=== PATIENT | female | born 1990 | race Caucasian/White ===

== ENCOUNTER 2023-04-25 10:52 | Outpatient (CLI) | payer BC, SELFPAY ==
[2023-04-25] VITALS (9 sets, daily range): BP systolic 114–125; BP diastolic 74–80; PULSE 77–85; RESP 18; TEMP 36.8; BMI 40.5
--- NOTE | ~2023-04-25 | US_ITS ---
EXAMINATION: US OB BPP wo non-stress DATE: 04/25/2023 14:18 INDICATION: Hypertension in . Third trimester. TECHNIQUE: Real-time pelvic ultrasound was performed. COMPARISON: Ultrasound 04/18/2023 FINDINGS: There is a single living fetus in vertex presentation. The placenta is left posterior. heart r ate is 131 beats per minute (bpm). Biophysical profile performed by the technologist: breathing (30 sec sustained breathing in 30 minutes): 2 out of 2 movement (3 gross body movements in 30 minutes): 2 out of 2 tone (one episode of mgkfhcz-zvftnkdfg-nbpibsg limb movement): 2 out of 2 Amniotic fluid pocket (2 cm): 2 out of 2 Total score: 8 out of 8 IMPRESSION: 1. Single living fetus in vertex presentation. 2. Biophysical profile 8 out of 8. Reviewed, dictated and finalized at location L.
--- NOTE | 2023-04-25 11:43 | PC.NURSE ---
Paged Dr. Mills for orders.
--- NOTE | 2023-04-25 11:49 | PC.NURSE ---
Dr. Pink came through unit and informed of this pt's arrival by ambulance after having a headache for 3 days, an emesis at work and just not feeling right. Pt walked across the street to the [employer] and when they checked her BP it was 170's / 120's. Initial BP here is 121/80. Denies visual disturbance, epigastric/RUQ pain. DTR's 2+ and no clonus. Pt on Labetalol BID for hypertension in . Reviewed FHR monitor tracing with MD and discussed wandering / indeterminate baseline at this time. Orders received for labs and to continue monitoring FHT's.
[2023-04-25 12:12] LABS: Basophils Percent Auto 0.1 % (0.2-1.2); Eosinophils Absolute Auto 0.1 K/mm3 (0-0.3); Eosinophils Percent Auto 0.8 % (0-4.4); Hematocrit 32.1 % (37.0-47.0); Hemoglobin 10.5 g/dL (12.0-15.0); Immature Granulocyte Absolute 0.04 K/mm3 (0.00-0.031); Immature Granulocyte Percent A 0.4 % (0-0.5); Lymphocytes Absolute Auto 1.43 K/mm3 (0.9-3.2); Lymphocytes Percent Auto 14.3 % (18.3-44.2); Mean Corpuscular HGB Conc 32.7 g/dl (32-36); Mean Corpuscular Hemoglobin 29.7 pg (26-34); Mean Corpuscular Volume 90.9 fl (80-100); Mean Platelet Volume 9.2 fl (7.4-10.4); Monocytes Absolute Auto 0.5 K/mm3 (0.1-0.6); Monocytes Percent Auto 5.3 % (2.6-8.5); Neutrophils Absolute Auto 7.9 K/mm3 (1.3-6.7); Neutrophils Percent Auto 79.1 % (45.5-73.1); Platelet Count Result 258 k/mm3 (150-375); Red Blood Count 3.53 M/mm3 (4.2-5.4); Red Cell Distribution Width 12.7 % (11.5-14.5)
[2023-04-25 12:16] LABS: Appearance Urine Cloudy (Clear); Bilirubin Urine Negative (Negative); Blood Urine Negative (Negative); Color Urine Yellow (Yellow); Glucose Urine UA Negative (Negative); Ketones Urine Negative (Negative); Leukocyte Esterase Ur Negative LEU/UL (Negative); Nitrate Urine Negative (Negative); Protein Urine Negative (Negative); Specific Grav Ur 1.015 (1.001-1.035); Urobilinogen Urine 0.2 mg/dL (<2.0)
[2023-04-25 12:20] LABS: Add Urine Microscopic? YES
[2023-04-25 12:22] LABS: Alanine Aminotransferase 18 U/L (6-35); Albumin Level 3.4 g/dL (3.5-5.1); Alkaline Phosphatase 98 U/L (38-126); Anion Gap 4 mmol/L (8-16); Aspartate Amino Transferase 19 U/L (14-36); Bilirubin,Total 0.2 mg/dL (0.2-1.3); Blood Urea Nitrogen 6 mg/dL (7-17); Carbon Dioxide 21 mmol/L (22-30); Chloride 107 mmol/L (98-107); Estimated Glomerular Filt Rate > 60; Glucose 82 mg/dL (65-110); Potassium 4.3 mmol/L (3.4-5.0); Sodium 132 mmol/L (137-145); Uric Acid 3.9 mg/dL (2.5-7.5)
[2023-04-25 12:33] LABS: RBC Urine 0-2 /hpf (0-2); Squamous Epithelial Cell Urine Few /hpf (Few); Transitional Epi Cells Urine Few /hpf (None Seen); WBC Urine 0-3 /hpf (0-3)
[2023-04-25 12:35] LABS: Bacteria Urine Trace /hpf
[2023-04-25 12:55] LABS: Creatinine Urine 57.9 mg/dL; Total Protein Urine Random 10 mg/dL; Ur Ttl Prot Creatinine Ratio 0.17 mg/mg (0-0.20)
--- NOTE | 2023-04-25 13:09 | PC.NURSE ---
Dr. Pink informed of lab results, updated on BP's, and discussed FHT's have settled down confirming FHR baseline of 120-130 with accels and reactive. Discussed pt still rates her headache a 2 and she had Tylenol 1000 mg at home 5 hrs ago. MD will call in RX for pt for Fioricet. OK to give pt a dose now and discharge to home (Pt's family is here to drive her home.)
[2023-04-25] MEDS: ACETAMINOPHEN/BUTALBITAL/CAFFEINE 325-50-40 MG TABLET (FIORICET) 1 TAB PO (13:24)
--- NOTE | 2023-04-25 13:30 | PC.NURSE ---
While going over discharge instructions and follow up with pt, she stated she is scheduled to come tomorrow for a scheduled NST and BPP. Checked with Dr. Pink- OK to do pt's BPP today and cancel tomorrow's .
--- NOTE | 2023-04-25 13:37 | P.PNOB_ITS ---
OB - Triage/Final Diagnosis Visit Information Reason for evaluation: other (elevated blood pressure and headache) Comments/Additional reasons for admission: I have assessed the risk for this patient, Milla Greene, and determined that she would benefit from observation care. Evaluation Laboratory results: Laboratory Tests 04/25/23 11:55 WBC 10.0 RBC 3.53 L Hgb 10.5 L Hct 32.1 L MCV 90.9 MCH 29.7 MCHC 32.7 RDW 12.7 Plt Count 258 MPV 9.2 Immature Gran % (Auto) 0.4 Neut % (Auto) 79.1 H Lymph % (Auto) 14.3 L [place] % (Auto) 5.3 Eos % (Auto) 0.8 Baso % (Auto) 0.1 L Lymph # (Auto) 1.43 [place] # (Auto) 0.5 Eos # (Auto) 0.1 Baso # (Auto) 0.0 Abs Immat Gran (auto) 0.04 H Absolute Neuts (auto) 7.9 H Absolute Nucleated RBC 0.0 Nucleated RBC % 0.0 Sodium 132 L Potassium 4.3 Chloride 107 Carbon Dioxide 21 L Anion Gap 4 L BUN 6 L Creatinine 0.50 L Estim Creat Clear Calc Not Reportable Estimated GFR > 60 Glucose 82 Uric Acid 3.9 Calcium 9.0 Total Bilirubin 0.2 AST 19 ALT 18 Alkaline Phosphatase 98 Total Protein 7.0 Albumin 3.4 L Urine Color Yellow Urine Appearance Cloudy H Urine pH 7.0 Ur Specific [place] 1.015 Urine Protein Negative Urine Glucose (UA) Negative Urine Ketones Negative Ur Blood (Man) Negative Urine Nitrate Negative Urine Bilirubin Negative Urine Urobilinogen 0.2 Leukocyte Esterase Rfl Negative Urine RBC 0-2 Urine WBC 0-3 Ur Squamous Epith Cells Few Ur Transition Epith Cell Few H Urine Bacteria Trace U Random Total Protein 10 Urine Creatinine 57.9 Protein/Creat Ratio 2 0.17 Vital signs: Vital Signs - 24 hr 04/25/23 11:17 04/25/23 11:52 04/25/23 12:01 Temperature Pulse Rate 80 84 81 Respiratory Rate Blood Pressure 121/80 119/75 125/74 Blood Pressure [Left Arm] 04/25/23 12:16 04/25/23 12:31 04/25/23 12:46 Temperature Pulse Rate 78 83 77 Respiratory Rate Blood Pressure 119/76 114/77 123/74 Blood Pressure [Left Arm] 04/25/23 13:01 04/25/23 11:20 04/25/23 11:20 Temperature 98.2 F Pulse Rate 79 85 Respiratory Rate 18 Blood Pressure 118/74 Blood Pressure [Left Arm] 121/80
--- NOTE | 2023-04-25 14:31 | PC.NURSE ---
Pt back from U/S. BPP 04/30. Headache has resolved.
== END 2023-04-25 14:31 | disposition home or self-care (01) ==
LOC: ANHOBOP 10:58 → ANHOBPP 10:58
PROVIDERS: Student in an Organized Health Care Education/Training Program; PCP Internal Medicine; Visit Provider Obstetrics & Gynecology
DX: O13.9 Gestational [pregnancy-induced] hypertension without significant proteinuria, unspecified trimester (principal); Z3A.00 Weeks of gestation of pregnancy not specified
CPT/HCPCS: 36415; 59025; 76819; 80053; 81001; 82570; 84156; 84550; 85025; 99199; A9270

== ENCOUNTER 2023-05-08 12:55 | Outpatient (CLI) | payer BC, SELFPAY ==
[2023-05-08] VITALS (8 sets, daily range): BP systolic 118–130; BP diastolic 73–82; PULSE 80–102
[2023-05-08 13:48] LABS: Basophils Percent Auto 0.1 % (0.2-1.2); Eosinophils Absolute Auto 0.1 K/mm3 (0-0.3); Eosinophils Percent Auto 1.2 % (0-4.4); Hematocrit 33.3 % (37.0-47.0); Hemoglobin 10.9 g/dL (12.0-15.0); Immature Granulocyte Absolute 0.09 K/mm3 (0.00-0.031); Immature Granulocyte Percent A 0.8 % (0-0.5); Lymphocytes Absolute Auto 1.84 K/mm3 (0.9-3.2); Lymphocytes Percent Auto 16.3 % (18.3-44.2); Mean Corpuscular HGB Conc 32.7 g/dl (32-36); Mean Corpuscular Hemoglobin 29.5 pg (26-34); Mean Platelet Volume 9.4 fl (7.4-10.4); Monocytes Absolute Auto 0.8 K/mm3 (0.1-0.6); Monocytes Percent Auto 6.8 % (2.6-8.5); Neutrophils Absolute Auto 8.5 K/mm3 (1.3-6.7); Neutrophils Percent Auto 74.8 % (45.5-73.1); Platelet Count Result 294 k/mm3 (150-375); Red Cell Distribution Width 13.3 % (11.5-14.5); White Blood Count 11.3 K/mm3 (4.5-10.0)
[2023-05-08 13:50] LABS: Appearance Urine Clear (Clear); Bilirubin Urine Negative (Negative); Blood Urine Negative (Negative); Color Urine Yellow (Yellow); Glucose Urine UA Negative (Negative); Ketones Urine Negative (Negative); Leukocyte Esterase Ur Negative LEU/UL (Negative); Nitrate Urine Negative (Negative); Protein Urine Negative (Negative); Specific Grav Ur 1.006 (1.001-1.035); Urobilinogen Urine 0.2 mg/dL (<2.0)
[2023-05-08 13:55] LABS: Creatinine Urine 31.9 mg/dL; Total Protein Urine Random 10 mg/dL; Ur Ttl Prot Creatinine Ratio 0.31 mg/mg (0-0.20)
[2023-05-08 13:56] LABS: Add Urine Microscopic? NO
[2023-05-08 14:03] LABS: Alanine Aminotransferase 16 U/L (6-35); Albumin Level 3.7 g/dL (3.5-5.1); Alkaline Phosphatase 113 U/L (38-126); Anion Gap 7 mmol/L (8-16); Aspartate Amino Transferase 21 U/L (14-36); Bilirubin,Total 0.2 mg/dL (0.2-1.3); Blood Urea Nitrogen 9 mg/dL (7-17); Calcium 9.1 mg/dL (8.4-10.2); Carbon Dioxide 20 mmol/L (22-30); Chloride 105 mmol/L (98-107); Estimated Glomerular Filt Rate > 60; Glucose 87 mg/dL (65-110); Potassium 4.3 mmol/L (3.4-5.0); Sodium 132 mmol/L (137-145); Uric Acid 5.4 mg/dL (2.5-7.5)
--- NOTE | 2023-05-08 14:50 | PC.NURSE ---
Dr. Palomo informed of BP's, lab results, reactive NST with occasional 10 beat or 10 sec drop in FHR. Pt had an LEIA of 11.2 on 04/29/22. Order received to discharge pt to home. Instruct pt to stop working. Add random total protein/creatinine ratio to Saturday's NST and BPP.
== END 2023-05-08 15:01 | disposition home or self-care (01) ==
LOC: ANHOBOP 12:58 → ANHOBPP 12:59
PROVIDERS: PCP Internal Medicine; Visit Provider Obstetrics & Gynecology
DX: O13.9 Gestational [pregnancy-induced] hypertension without significant proteinuria, unspecified trimester (principal); Z3A.00 Weeks of gestation of pregnancy not specified
CPT/HCPCS: 36415; 59025; 80053; 81003; 82570; 84156; 84550; 85025; 99199

== ENCOUNTER 2023-05-20 12:30 | Outpatient (RCR) | payer BC, SELFPAY ==
[2023-05-02] MEDS: BETAMETHASONE SOD PHOS/ACETATE 30 MG/5 ML VIAL 12 MG IM (12:23)
[2023-05-03] MEDS: BETAMETHASONE SOD PHOS/ACETATE 30 MG/5 ML VIAL 12 MG IM (13:03)
[2023-05-06 14:01] VITALS: BP 113/75; PULSE 100
[2023-05-17 12:40] VITALS: BP 119/76; PULSE 92
[2023-05-17 12:46] VITALS: BP 126/76; PULSE 88
--- NOTE | ~2023-05-20 | US_ITS ---
EXAMINATION: US OB BPP wo non-stress DATE: 05/17/2023 14:07 INDICATION: Preeclampsia. Third trimester. TECHNIQUE: Real-time pelvic ultrasound was performed. COMPARISON: Ultrasound 05/10/2023 FINDINGS: There is a single living fetus in vertex presentation. The placenta is left fundal. heart rate is 153 beats per minute (bpm). The amniotic fluid index is 12.9 cm which is normal. Biophysical profile performed by the technologist: breathing (30 sec sustained breathing in 30 minutes): 2 out of 2 movement (3 gross body movements in 30 minutes): 2 out of 2 tone (one episode of wakqapf-fbncrgqdd-cqysbym limb movement): 2 out of 2 Amniotic fluid pocket (2 cm): 2 out of 2 Total score: 8 out of 8 IMPRESSION: 1. Single living fetus in vertex presentation. 2. Biophysical profile 8 out of 8. Reviewed, dictated and finalized at location A.
== END 2023-07-31 23:59 | disposition home or self-care (01) ==
LOC: ANHOBOP 12:30
PROVIDERS: PCP Internal Medicine; Visit Provider Obstetrics & Gynecology
DX: O26.899 Other specified pregnancy related conditions, unspecified trimester (principal); Z3A.00 Weeks of gestation of pregnancy not specified
CPT/HCPCS: 76819; 96372; J0702

== ENCOUNTER 2023-05-20 12:34 | Outpatient (RCR) | payer BC, SELFPAY ==
[2023-04-18 15:11] VITALS: BP 105/67; PULSE 95
[2023-04-22 12:41] VITALS: BP 116/68; PULSE 78
[2023-04-29 17:35] VITALS: BP 125/82; PULSE 89
--- NOTE | 2023-04-29 18:01 | PC.NURSE ---
1755--Upon entering room the lights are off and the pt. is lying on her R. side. She states that the r
[2023-05-02 12:26] LABS: Basophils Percent Auto 0.1 % (0.2-1.2); Eosinophils Absolute Auto 0.1 K/mm3 (0-0.3); Eosinophils Percent Auto 0.5 % (0-4.4); Hematocrit 32.8 % (37.0-47.0); Hemoglobin 10.7 g/dL (12.0-15.0); Immature Granulocyte Absolute 0.04 K/mm3 (0.00-0.031); Immature Granulocyte Percent A 0.4 % (0-0.5); Lymphocytes Absolute Auto 1.22 K/mm3 (0.9-3.2); Lymphocytes Percent Auto 12.5 % (18.3-44.2); Mean Corpuscular HGB Conc 32.6 g/dl (32-36); Mean Corpuscular Hemoglobin 29.5 pg (26-34); Mean Corpuscular Volume 90.4 fl (80-100); Mean Platelet Volume 9.4 fl (7.4-10.4); Monocytes Absolute Auto 0.5 K/mm3 (0.1-0.6); Monocytes Percent Auto 5.2 % (2.6-8.5); Neutrophils Absolute Auto 7.9 K/mm3 (1.3-6.7); Neutrophils Percent Auto 81.3 % (45.5-73.1); Platelet Count Result 254 k/mm3 (150-375); Red Blood Count 3.63 M/mm3 (4.2-5.4); Red Cell Distribution Width 12.8 % (11.5-14.5); White Blood Count 9.8 K/mm3 (4.5-10.0)
[2023-05-02 12:30] LABS: Appearance Urine Clear (Clear); Bacteria Urine None Seen /hpf; Bilirubin Urine Negative (Negative); Blood Urine Negative (Negative); Color Urine Yellow (Yellow); Glucose Urine UA Negative (Negative); Ketones Urine Negative (Negative); Leukocyte Esterase Ur Negative LEU/UL (Negative); Nitrate Urine Negative (Negative); Non Pathogenic Casts 0-2; Protein Urine Trace mg/dL (Negative); RBC Urine 0-2 /hpf (0-2); Specific Grav Ur 1.016 (1.001-1.035); Squamous Epithelial Cell Urine Few /hpf (Few); Urobilinogen Urine 0.2 mg/dL (<2.0); WBC Urine 0-5 /hpf
[2023-05-02 12:31] LABS: Add Urine Microscopic? YES; Creatinine Urine 136.4 mg/dL; Total Protein Urine Random 9 mg/dL; Ur Ttl Prot Creatinine Ratio 0.07 mg/mg (0-0.20)
[2023-05-02 12:36] LABS: Alanine Aminotransferase 17 U/L (6-35); Albumin Level 3.4 g/dL (3.5-5.1); Alkaline Phosphatase 101 U/L (38-126); Anion Gap 6 mmol/L (8-16); Aspartate Amino Transferase 21 U/L (14-36); Bilirubin,Total 0.2 mg/dL (0.2-1.3); Blood Urea Nitrogen 6 mg/dL (7-17); Calcium 8.9 mg/dL (8.4-10.2); Carbon Dioxide 22 mmol/L (22-30); Chloride 105 mmol/L (98-107); Estimated Glomerular Filt Rate > 60; Glucose 122 mg/dL (65-110); Potassium 3.7 mmol/L (3.4-5.0); Sodium 133 mmol/L (137-145); Uric Acid 4.5 mg/dL (2.5-7.5)
[2023-05-02 12:56] VITALS: BP 103/69; PULSE 106
[2023-05-06 13:36] VITALS: BP 114/78; PULSE 100
[2023-05-10 12:58] LABS: Creatinine Urine 19.5 mg/dL; Total Protein Urine Random 13 mg/dL; Ur Ttl Prot Creatinine Ratio 0.67 mg/mg (0-0.20)
[2023-05-10 14:36] VITALS: BP 115/67; PULSE 75
[2023-05-13 12:10] LABS: Total Protein Urine Random 12 mg/dL
[2023-05-13 12:13] VITALS: BP 105/73; PULSE 92
[2023-05-13 12:14] LABS: Ur Ttl Prot Creatinine Ratio 0.29 mg/mg (0-0.20)
[2023-05-17 14:23] VITALS: BP 119/76; PULSE 92
--- NOTE | ~2023-05-20 | US_ITS ---
EXAMINATION: US OB BPP wo non-stress DATE: 05/10/2023 14:48 INDICATION: Gestational hypertension during third trimester . Assess biophysical profile. TECHNIQUE: Real-time pelvic ultrasound was performed. The interpreting radiologist was not present fo r the study. COMPARISON: 05/02/2023 FINDINGS: There is a single living fetus in vertex presentation. The placenta is on the left. heart rate is 145 beats per minute (bpm). Biophysical profile performed by the technologist: breathing (30 sec sustained breathing in 30 minutes): 2 out of 2 movement (3 gross body movements in 30 minutes): 2 out of 2 tone (one episode of msystjy-duvappydx-tqhdilr limb movement): 2 out of 2 Amniotic fluid pocket (2 cm): 2 out of 2 Total score: 8 out of 8 IMPRESSION: 1. Single living fetus in vertex presentation with heart rate of 145 bpm. 2. Biophysical profile 8 out of 8. Reviewed, dictated and finalized at location A.
--- NOTE | ~2023-05-20 | US_ITS ---
EXAMINATION: US OB BPP wo non-stress DATE: 04/18/2023 15:54 CDT INDICATION: Hypertension. TECHNIQUE: Real-time transabdominal obstetric ultrasound. FINDINGS: No prior studies for comparison. There is a single living fetus in vertex presentation. The placenta is vertex without placenta previ a. cardiac activity and movement is noted with a heart rate of 158 beats per minute. Biophysical profile: breathin of 2 movement: 2 of 2 tone: 2 of 2 Amniotic flud pocket: 2 of 2 Total score: 8 of 8 IMPRESSION: 1. Single living intrauterine in vertex presentation. 2: Total biophysical profile score of 8/8. Reviewed, dictated and finalized at location A.
--- NOTE | ~2023-05-20 | US_ITS ---
EXAMINATION: US OB BPP wo non-stress DATE: 05/02/2023 12:04 INDICATION: Hypertension in . Third trimester. TECHNIQUE: Real-time pelvic ultrasound was performed. COMPARISON: Ultrasound 04/29/2023 FINDINGS: There is a single living fetus in vertex presentation. The placenta is on the left. heart rate is 144 beats per minute (bpm). Biophysical profile performed by the technologist: breathing (30 sec sustained breathing in 30 minutes): 2 out of 2 movement (3 gross body movements in 30 minutes): 2 out of 2 tone (one episode of hgyglkk-fumpeljjb-qyjnpzv limb movement): 2 out of 2 Amniotic fluid pocket (2 cm): 2 out of 2 Total score: 8 out of 8 IMPRESSION: 1. Single living fetus in vertex presentation. 2. Biophysical profile 8 out of 8. Reviewed, dictated and finalized at location A.
--- NOTE | ~2023-05-20 | US_ITS ---
EXAMINATION: US OB limited DATE: 05/20/2023 14:36 INDICATION: Hypertension during third trimester . Assess amniotic fluid index. TECHNIQUE: Real-time ultrasound of the pelvis was performed. The interpreting radiologist was not pre sent for the study. COMPARISON: None. FINDINGS: There is a single living fetus in vertex presentation. The placenta is left fundal. heart rate is 146 beats per minute (bpm). The amniotic fluid index is 13.6 cm, which is normal (5th%-95%: 7.5-2 4.4 cm at 37 weeks estimated gestational age). IMPRESSION: 1. Single living fetus in vertex presentation with heart rate of 146 bpm. 2. Normal amniotic fluid index of 13.6 cm. Reviewed, dictated and finalized at location A. IMPRESSION: 1. Single living fetus in vertex presentation with heart rate of 146 bpm . 2. Normal amniotic fluid index of 13.6 cm.
[2023-05-20 13:55] VITALS: BP 126/79; PULSE 96
== END 2023-07-03 12:00 | disposition home or self-care (01) ==
LOC: ANHOBOP 12:34
PROVIDERS: PCP Internal Medicine; Visit Provider Obstetrics & Gynecology
DX: O16.3 Unspecified maternal hypertension, third trimester (principal); Z3A.32 32 weeks gestation of pregnancy; Z3A.33 33 weeks gestation of pregnancy; Z3A.34 34 weeks gestation of pregnancy; Z3A.35 35 weeks gestation of pregnancy; Z3A.36 36 weeks gestation of pregnancy
CPT/HCPCS: 36415; 59025; 76815; 76819; 80053; 81001; 82570; 84156; 84550; 85025; 96372; J0702

== ENCOUNTER 2023-05-21 05:00 | Inpatient (IN) | payer BC, SELFPAY ==
[2023-05-21] VITALS (248 sets, daily range): BP systolic 97–166; BP diastolic 53–100; PULSE 60–127; RESP 15–21; TEMP 36.1–36.8; O2SAT 88–100; BMI 39.9
--- NOTE | 2023-05-21 05:34 | LDADM ---
This patient, Milla Greene, was admitted to Labor/Delivery/Recovery 103 on 05/21/23 at 05:00. Plans for labor, pain management and were discussed with patient. Patient/family oriented to hospital policies and general routines including ID bracelet, bed and alarms, visiting hours, pain management, procedures, bathroom and other care routines, personal items, smoking policy, room service/diet and guest tray routines, security routines, and visiting hours. Patient/Family are encouraged to report perceived risks to care and to ask questions if they do not understand what they are told or what they should do. See OBIX for further documentation.
[2023-05-21 05:53] LABS: Basophils Percent Auto 0.2 % (0.2-1.2); Eosinophils Absolute Auto 0.1 K/mm3 (0-0.3); Eosinophils Percent Auto 1.1 % (0-4.4); Hematocrit 34.1 % (37.0-47.0); Hemoglobin 11.2 g/dL (12.0-15.0); Immature Granulocyte Absolute 0.04 K/mm3 (0.00-0.031); Immature Granulocyte Percent A 0.4 % (0-0.5); Lymphocytes Absolute Auto 2.16 K/mm3 (0.9-3.2); Mean Corpuscular HGB Conc 32.8 g/dl (32-36); Mean Corpuscular Hemoglobin 29.6 pg (26-34); Mean Platelet Volume 9.2 fl (7.4-10.4); Monocytes Absolute Auto 0.5 K/mm3 (0.1-0.6); Monocytes Percent Auto 4.5 % (2.6-8.5); Neutrophils Percent Auto 73.8 % (45.5-73.1); Platelet Count Result 261 k/mm3 (150-375); Red Blood Count 3.79 M/mm3 (4.2-5.4); White Blood Count 10.8 K/mm3 (4.5-10.0)
[2023-05-21 06:03] LABS: Alanine Aminotransferase 18 U/L (6-35); Albumin Level 3.7 g/dL (3.5-5.1); Alkaline Phosphatase 128 U/L (38-126); Anion Gap 9 mmol/L (8-16); Aspartate Amino Transferase 25 U/L (14-36); Bilirubin,Total 0.3 mg/dL (0.2-1.3); Blood Urea Nitrogen 9 mg/dL (7-17); Calcium 9.6 mg/dL (8.4-10.2); Carbon Dioxide 18 mmol/L (22-30); Chloride 106 mmol/L (98-107); Estimated CRCL calculation 162 ml/min; Estimated Glomerular Filt Rate > 60; Glucose 119 mg/dL (65-110); Potassium 3.8 mmol/L (3.4-5.0); Sodium 133 mmol/L (137-145); Uric Acid 4.8 mg/dL (2.5-7.5)
[2023-05-21] MEDS: OXYTOCIN 30 UNITS/NS 500 ML 30 UNITS/500 ML BAG 6 UNITS IV CONT (06:04)
[2023-05-21] MEDS: LACTATED RINGERS 1,000 ML 125 ML IV CONT (06:04)
--- NOTE | 2023-05-21 06:14 | PC.NURSE ---
Report given to John Cline RN
[2023-05-21] MEDS: fentaNYL CITRATE INJ (*CRX) 100 MCG/2 ML VIAL IV PUSH (08:48)
[2023-05-21] MEDS: LACTATED RINGERS 1,000 ML 999 ML IV CONT ×2 (08:48→14:07)
--- NOTE | 2023-05-21 09:49 | WPDANESEPPF ---
Anes - Initial Pre Proc Eval Procedure: labor epidural Date/Time: 05/21/23 09:49 Surgeon: Mario Palomo MD Pre Op Diagnosis: labor pain Pre Op Diagnosis: IOL Patient Data Age: 33 Gender: F Height: 1.75 m Weight: 122.5 kg Last Vital Signs Temp 36.1 C L 05/21/23 07:00 Pulse 82 05/21/23 09:48 BP 133/87 05/21/23 09:48 Pulse Ox 100 05/21/23 09:49 O2 Del Method Room Air 05/21/23 05:32 Allergies Allergy/AdvReac Type Severity Reaction Status Date / Time latex Allergy Severe Rash Verified 05/20/23 09:26 adhesive tape Allergy Rash Verified 05/20/23 09:26 Home Medications Medication Instructions Recorded Confirmed Type prenat.vits,chanel,wud-qulp-vurvq 1 tablet PO DAILY 10/17/22 05/21/23 History aspirin 81 mg tablet,delayed 81 mg PO DAILY 12/12/22 05/21/23 History release (Adult Low Dose Aspirin) docusate sodium 50 mg capsule 50 mg PO DAILY 04/17/23 05/21/23 History (Colace Clear) ferrous sulfate 325 mg (65 mg 325 mg PO DAILY 04/17/23 05/21/23 History iron) tablet labetalol 200 mg tablet 200 mg PO QAM 04/25/23 05/21/23 History cetirizine 10 mg tablet (Zyrtec) 20 mg PO DAILY 05/02/23 05/21/23 History labetalol 100 mg tablet 100 mg PO QHS 05/02/23 05/21/23 History psyllium husk 0.4 gram capsule 0.4 g PO DAILY 05/09/23 05/21/23 History (Metamucil) Laboratory Tests 05/21/23 05:45 WBC 10.8 H K/mm3 (4.5-10.0) RBC 3.79 L M/mm3 (4.2-5.4) Hgb 11.2 L g/dL (12.0-15.0) Hct 34.1 L % (37.0-47.0) MCV 90.0 fl (80-100) MCH 29.6 pg (26-34) MCHC 32.8 g/dl (32-36) RDW 14.0 % (11.5-14.5) Plt Count 261 k/mm3 (150-375) MPV 9.2 fl (7.4-10.4) Immature Gran % (Auto) 0.4 % (0-0.5) Neut % (Auto) 73.8 H % (45.5-73.1) Lymph % (Auto) 20.0 % (18.3-44.2) [place] % (Auto) 4.5 % (2.6-8.5) Eos % (Auto) 1.1 % (0-4.4) Baso % (Auto) 0.2 % (0.2-1.2) Lymph # (Auto) 2.16 K/mm3 (0.9-3.2) [place] # (Auto) 0.5 K/mm3 (0.1-0.6) Eos # (Auto) 0.1 K/mm3 (0-0.3) Baso # (Auto) 0.0 K/mm3 (0.0-0.1) Abs Immat Gran (auto) 0.04 H K/mm3 (0.00-0.031) Absolute Neuts (auto) 8.0 H K/mm3 (1.3-6.7) Absolute Nucleated RBC 0.0 K/mm3 (0.0-0.012) Nucleated RBC % 0.0 % (0.0-0.2) Sodium 133 L mmol/L (137-145) Potassium 3.8 mmol/L (3.4-5.0) Chloride 106 mmol/L (98-107) Carbon Dioxide 18 L mmol/L (22-30) Anion Gap 9 mmol/L (8-16) BUN 9 mg/dL (7-17) Creatinine 0.60 L mg/dL (0.7-1.0) Estim Creat Clear Calc 162 ml/min Estimated GFR > 60 (59 - ) Glucose 119 H mg/dL (65-110) Uric Acid 4.8 mg/dL (2.5-7.5) Calcium 9.6 mg/dL (8.4-10.2) Total Bilirubin 0.3 mg/dL (0.2-1.3) AST 25 U/L (14-36) ALT 18 U/L (6-35) Alkaline Phosphatase 128 H U/L (38-126) Total Protein 7.0 g/dL (6.3-8.2) Albumin 3.7 g/dL (3.5-5.1) RPR Pending Blood Type A Positive Antibody Screen Negative Patient hx anesthesia problems: none Family hx anesthesia problems: none Results Review: All pre-operative results and documents have been reviewed as part of the pre-operative evaluation. [facility] Past Medical History Medical History Abnormal glucose tolerance in Asthma Inactive tuberculosis Nexplanon insertion 03/29/11 Implanon insertion Nexplanon removal 05/14/13 Implanon removal Shoulder injury (~2006) Suppression of menses Surgical History Surgical History H/O lumpectomy History of eye surgery (~2010) History of general surgical procedure 03/25/19 excision hidradenitis (B) 08/08/22 excision of hidradenitis suppurative (L) thigh & groin History of gynecologic surgery (05/12/20) hscope d&c/lscope--pelvic pain, irregular bleeding History of placement of ear tubes (~1992) History of
[2023-05-21 09:58] LABS: Rapid Plasma Reagin Non-Reactive (NonReactive)
[2023-05-21] MEDS: ONDANSETRON INJ 4 MG/2 ML VIAL IV PUSH ×2 (15:03→20:16)
[2023-05-21] MEDS: ceFAZolin 3 GM/D5W 100 ML 100 ML IVPB (20:10)
[2023-05-21] MEDS: AZITHROMYCIN 500 MG/NS 250 ML 500 MG/250 ML BAG 250 MG IVPB (20:10)
[2023-05-21] MEDS: KETOROLAC 15 MG/ML VIAL (*BKC) IV PUSH (20:49)
--- NOTE | 2023-05-21 20:55 | PM.IMHP ---
H&P: HPI History of Present Illness Date/Time: 05/21/23 20:55 33-year-old 1 patient at 37 weeks gestation. Presents for induction of labor due to chronic hypertension with superimposed mild preeclampsia. She has been followed with testing and serial laboratory studies all of which were reassuring. records are on the chart for further information. Chief Complaint: PMFSH Past Medical History Medical History Abnormal glucose tolerance in Asthma Inactive tuberculosis Nexplanon insertion 03/29/11 Implanon insertion Nexplanon removal 05/14/13 Implanon removal Shoulder injury (~2006) Suppression of menses Surgical History Surgical History H/O lumpectomy History of eye surgery (~2010) History of general surgical procedure 03/25/19 excision hidradenitis (B) 08/08/22 excision of hidradenitis suppurative (L) thigh & groin History of gynecologic surgery (05/12/20) hscope d&c/lscope--pelvic pain, irregular bleeding History of placement of ear tubes (~1992) History of right knee surgery 05/19/19 bone fragments removed 05/24/19 scraped bone out History of shoulder surgery (~2011) History of wisdom tooth extraction Family History Family History Father Diabetes mellitus Cerebrovascular accident Heart disease Coronary arteriosclerosis Hypertension Grandparent Diabetes mellitus maternal grandmother Sibling Crohn's disease sister Rheumatoid arthritis sister Social History Social History Smoking status: Never smoker Alcohol intake: never Substance use: never Lack of Transportation: No Lack of Food: Never True Current Housing: I Have Housing Concerned About Future Housing: No Difficulty Paying Gas/Electric Bills: No Difficulty Paying for Meds: No Currently Unemployed: No Education: Bachelor's Degree Difficulty w/ Childcare or Family Care: No Living arrangements: other Additional living arrangements comments: Engaged Occupation/Education: occupation 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 Gender identity (if verbalized by the patient): Female Sexual Orientation (if Verbalized by the Patient): Straight or Heterosexual Spiritual care concerns: No Meds Home Medications and Allergies Home Medications Medication Instructions Recorded Confirmed Type prenat.vits,chanel,obc-vari-ywyug 1 tablet PO DAILY 10/17/22 05/21/23 History aspirin 81 mg tablet,delayed 81 mg PO DAILY 12/12/22 05/21/23 History release (Adult Low Dose Aspirin) docusate sodium 50 mg capsule 50 mg PO DAILY 04/17/23 05/21/23 History (Colace Clear) ferrous sulfate 325 mg (65 mg 325 mg PO DAILY 04/17/23 05/21/23 History iron) tablet labetalol 200 mg tablet 200 mg PO QAM 04/25/23 05/21/23 History cetirizine 10 mg tablet (Zyrtec) 20 mg PO DAILY 05/02/23 05/21/23 History labetalol 100 mg tablet 100 mg PO QHS 05/02/23 05/21/23 History psyllium husk 0.4 gram capsule 0.4 g PO DAILY 05/09/23 05/21/23 History (Metamucil) Allergies Allergy/AdvReac Type Severity Reaction Status Date / Time latex Allergy Severe Rash Verified 05/20/23 09:26 adhesive tape Allergy Rash Verified 05/20/23 09:26 Vital Signs Vital Signs - 24 hr 05/21/23 05:32 05/21/23 05:41 05/21/23 06:00 Temperature Pulse Rate 108 H 105 H Respiratory Rate Blood Pressure 122/89 130/94 H Pulse Oximetry Oxygen Delivery Room Air 05/21/23 06:30 05/21/23 07:00 05/21/23 07:30 Temperature 97 F L Pulse Rate 89 84 90 Respiratory Rate Blood Pressure 125/87 130/92 H 129/94 H Pulse Oximetry Oxygen Delivery 05/21/23 08:00 05/21/23 08:30 05/21/23 08:59 Temperature Pulse Rate 89 77 80 Respir
--- NOTE | 2023-05-21 20:59 | P.HPUP_ITS ---
History and Physical Update Update Date/Time: 05/21/23 20:59 33-year-old primigravid patient at 37 weeks. Induction of labor has progressed to 8cm, cervix not swollen and no longer dilating. Discussed with patient and family, will proceed with delivery. History and Physical has been reviewed, including an updated exam of the patient. There are NO changes in the patient's condition. Risks, benefits, and alternatives have been discussed and questions answered. Cheng mclean agrees to proceed with procedure.
--- NOTE | 2023-05-21 20:59 | P.PCNOB_ITS ---
OB - Delivery Note Procedure Procedure: Procedures Operation Date: 05/21/23 20:00 <No data on this case meets the specified criteria> Events: Chronic Hypertension and Preeclampsia w/o severe features Intrapartal Events: Arrest of Dilation Induction method: Per Pitocin Protocol Delivery augmentation: Rupture of Membranes Delivery monitor: External FHT and External Uterine Route of delivery: Prior to decision for section, [facility] labor guidelines were considered and discussed with the patient and staff. Decision made to proceed with the section.: Yes Quantitative Blood Loss (ml): 850 Anesthesia type: Epidural Disposition: PACU Complications: None Narrative: Patient prepped and draped in usual manner for this procedure. Pfannenstiel incision was made which was carried down the fascia which was then extended bilaterally the length of the skin incision. Superiorly and inferiorly dissected away from the rectus muscles and the peritoneum was without difficulty. Bladder flap was developed. Uterus scored and vertex was delivered without difficulty rest of baby delivered as well cord clamped cut and placenta was manually removed. Uterus was exteriorized and cleared of membranes and clots. Hysterotomy incision was approximated using 0 Monocryl suture in a running interlocking manner with good approximation hemostasis noted. Uterus was well contracted and hysterotomy incision was hemostatic. Uterus was returned to the abdomen gutters were cleared her serositis fluid and clots, uterine incision again inspected noted hemostatic. Fascia was approximated using 0 Vicryl from the left angle midline and the right angle to midline good approximation noted. Subcutaneous tissue was approximated using 0 plain suture and korin were used to approximate the skin edges. At this point seizure was considered terminated the patient was sent to recovery room stable condition. Baby Weeks of gestation at delivery: 37 Infant gender: Male presentation: vertex Placenta delivery description: Manual Removal Cord Vessel Description: 3 Vessels [facility] Delivery Billing Delivery Delivery: Delivery Charge
[2023-05-21] MEDS: LACTATED RINGERS 500 ML 999 ML IV CONT (22:07)
[2023-05-21] MEDS: OXYTOCIN 30 UNITS/NS 500 ML 30 UNITS/500 ML BAG 125 UNITS IV CONT (23:26)
--- NOTE | 2023-05-21 23:30 | OBPPTRN ---
Patient transferred to post room #291 via stretcher. Support person present. Oriented to unit, room, information board, rooming in, admission packet and security measures. Patient verbalizes understanding.
[2023-05-22] VITALS (9 sets, daily range): BP systolic 96–120; BP diastolic 64–72; PULSE 70–105; RESP 16–18; TEMP 36.7–37.3; O2SAT 98–100
[2023-05-22] MEDS: IBUPROFEN 600 MG TABLET PO ×4 (00:08→23:20)
[2023-05-22] MEDS: LABETALOL HCL 100 MG TABLET 200 MG PO ×3 (00:34→22:32)
[2023-05-22] MEDS: DEXTROSE 5%/0.45% SOD CHL 1,000 ML 125 ML IV CONT (04:35)
[2023-05-22 05:03] LABS: Basophils Percent Auto 0.1 % (0.2-1.2); Eosinophils Percent Auto 0.1 % (0-4.4); Hemoglobin 8.8 g/dL (12.0-15.0); Immature Granulocyte Absolute 0.12 K/mm3 (0.00-0.031); Immature Granulocyte Percent A 0.7 % (0-0.5); Lymphocytes Absolute Auto 1.49 K/mm3 (0.9-3.2); Lymphocytes Percent Auto 8.4 % (18.3-44.2); Mean Corpuscular HGB Conc 32.6 g/dl (32-36); Mean Corpuscular Hemoglobin 29.6 pg (26-34); Mean Corpuscular Volume 90.9 fl (80-100); Mean Platelet Volume 9.4 fl (7.4-10.4); Monocytes Absolute Auto 0.7 K/mm3 (0.1-0.6); Neutrophils Absolute Auto 15.4 K/mm3 (1.3-6.7); Neutrophils Percent Auto 86.7 % (45.5-73.1); Platelet Count Result 210 k/mm3 (150-375); Red Blood Count 2.97 M/mm3 (4.2-5.4); Red Cell Distribution Width 13.9 % (11.5-14.5); White Blood Count 17.7 K/mm3 (4.5-10.0)
[2023-05-22] MEDS: ACETAMINOPHEN 325 MG TABLET 650 MG PO ×2 (05:55→12:29)
[2023-05-22] MEDS: DOCUSATE SODIUM 100 MG CAPSULE PO ×2 (09:22→16:28)
[2023-05-22] MEDS: POLYSACCHARIDE IRON COMPLEX 150 MG CAPSULE PO ×2 (09:22→16:28)
[2023-05-22] MEDS: MULTIVIT/MIN/PREN/FOL AC/IRON TABLET 1 TAB PO (09:22)
[2023-05-22] MEDS: LORATADINE 10 MG TABLET 20 MG PO (09:28)
--- NOTE | 2023-05-22 10:25 | WPDANLDNPN2 ---
Anes-Prog Note L&D-Neuraxial Date/Time: 05/22/23 10:25 Patient feedback: Patient satisfied with post-operative pain management.
--- NOTE | 2023-05-22 10:25 | WPDANLDPN2 ---
Anes-Prog Note L&D Date/Time: 05/22/23 10:25 Neuro status: Neuro function grossly intact. Cardiovascular status: normal Respiratory status: normal Airway patency: baseline Mental status: baseline Post-Op hydration status: normal Vital Signs: Last Vital Signs Temp 37.0 C 05/22/23 09:25 Pulse 70 05/22/23 09:27 Resp 16 05/22/23 09:25 BP 113/68 05/22/23 09:25 Pulse Ox 100 05/22/23 09:25 O2 Del Method Room Air 05/21/23 23:40 Pain score (VAS): 0 I/O: Intake & Output 05/21/23 05/22/23 05/22/23 23:59 07:59 15:59 Intake Total 200 240 500 Output Total 549 493 4504 Balance -150 510 600 Post-procedural complaints: none Patient feedback: Patient satisfied with anesthetic care.
[2023-05-22] MEDS: HYDROcodone/acetaminophen (*CRX) 5-325 MG TABLET 1 TAB PO (19:28)
[2023-05-23 00:23] VITALS: BP 101/63; PULSE 103; RESP 16; TEMP 36.6; O2SAT 98
[2023-05-23 04:09] VITALS: BP 125/72; PULSE 96; RESP 14; TEMP 36.7; O2SAT 99
[2023-05-23] MEDS: HYDROcodone/acetaminophen (*CRX) 10-325 MG TABLET 1 TAB PO (05:16)
--- NOTE | 2023-05-23 08:37 | PM.OBDSVD ---
DS: Admitting Diagnosis Discharge Date 05/23/2023 Admitting Diagnosis DS: Discharge Diagnosis Discharge Diagnosis (1) 37 weeks gestation of : Code(s): Z3A.37 - 37 weeks gestation of Status: Acute (2) Hypertension: Code(s): I10 - Essential (primary) hypertension Status: Acute (3) Pre-eclampsia added to pre-existing hypertension: Code(s): O11.9 - Pre-existing hypertension with pre-eclampsia, unspecified trimester Status: Acute OB - DS: Summary OB Procedures : PIH Mgmt OB Procedures Intrapartum: OB Procedures: : None Peripartum Data Procedures: Procedures Operation Date: 05/21/23 20:00 Actual Procedure Side Surgeon p Section Not Applicable Mario Palomo MD Time Spent with Patient Time attestation: Total time spent providing and/or coordinating discharge services: Discharge Plan Discharge Discharging Clinician: Mario Palomo Patient Disposition: Home, Self-Care Activity: as tolerated Diet: as tolerated Wound Care Instructions: incision open to air Patient Instructions: Antibiotic Form Stand Alone Forms: General Discharge Information Follow-up/Referrals: Mario Palomo MD [Physician] - 1 Week Discharge Medications: New hydrocodone-acetaminophen 5-325 mg Tablet 1 tablet PO Q3H PRN (Reason: Moderate Pain (4-6)) Qty: 30 0RF labetalol 100 mg Tablet 200 mg PO Q12HR Qty: 60 0RF ibuprofen 600 mg Tablet 600 mg PO Q6H PRN (Reason: Cramping) Qty: 30 0RF Continued prenat.vits,chanel,meh-oybz-iodoe Tablet 1 tablet PO DAILY ferrous sulfate 325 mg (65 mg iron) tablet 325 mg PO DAILY Colace Clear 50 mg capsule 50 mg PO DAILY psyllium husk [Metamucil] 0.4 gram Capsule 0.4 g PO DAILY cetirizine [Zyrtec] 10 mg Tablet 20 mg PO DAILY Discontinued aspirin [Adult Low Dose Aspirin] 81 mg tablet,delayed release (DR/EC) 81 mg PO DAILY labetalol 100 mg Tablet 100 mg PO QHS labetalol 200 mg tablet 200 mg PO QAM Date of admission: 05/21/23 05:00 Primary Care Provider: SalmaTemo Admitting Provider: Hurford,Mario M. Attending physician on admission: Mario Palomo Condition: Stable
[2023-05-23] MEDS: polyethylene glycoL 3350 17 GM POWD.PACK PO (08:43)
[2023-05-23 08:44] VITALS: PULSE 104
[2023-05-23] MEDS: LABETALOL HCL 100 MG TABLET 200 MG PO (08:44)
[2023-05-23 08:45] VITALS: BP 130/93; PULSE 104; RESP 16; TEMP 37; O2SAT 100
[2023-05-23] MEDS: IBUPROFEN 600 MG TABLET PO (08:45)
[2023-05-23] MEDS: LORATADINE 10 MG TABLET 20 MG PO (08:46)
[2023-05-23] MEDS: MULTIVIT/MIN/PREN/FOL AC/IRON TABLET 1 TAB PO (08:46)
[2023-05-23] MEDS: DOCUSATE SODIUM 100 MG CAPSULE PO (08:46)
[2023-05-23] MEDS: POLYSACCHARIDE IRON COMPLEX 150 MG CAPSULE PO (08:46)
[2023-05-23] MEDS: HYDROcodone/acetaminophen (*CRX) 5-325 MG TABLET 1 TAB PO (08:49)
--- NOTE | 2023-05-23 13:56 | PC.NURSE ---
1015 Introductions were made, then consulted with patient to assess needs related to . Mother led the conversation with her?plans to feed?her and the?experience so far. Mother works well with her with encouragement and education. Encouraged understanding of the benefits of skin to skin (demonstrating unwrapping and placing upright on her chest), stimulating with massage touch, changing positions to encourage wakefulness, how to watch for early feeding cues, responsive feeding, feeding on demand (aiming for 8-12 times in 24 hours, about every 2-3 hours), milk production, building/maintaining a milk supply, duration of feeding, signs of adequate intake/output and how to record on the feeding sheet. Reviewed positioning and ear, shoulder, hip alignment, supporting the breast to facilitate a deep latch, asymmetrical latch (off-center), leading with the chin with a big, open, wide gape and body close to mother. Infant last fed successfully at 0915 for 22 minutes and mother denies issues with latch or discomfort. Education given to mother of how to visualize suck/swallow ratios and listen for drinking at the breast. Nipple care reviewed with optimal latch and good positioning. Reminding mother of comfort measures of healing with a warm and wet washcloth to rinse breast, then leave open to air-dry as needed. Reviewed good handwashing when or touching the breast/nipples to prevent infection. Resources used to facilitate learning were used with the mom and baby guide. Mother voiced understanding of skin to skin, stimulating with massage touch, responsive feedings, hand expressed colostrum, talking to infant to encourage if it has been 2 -2.5 hours since the start of the last , to call if does not latch, or if there is discomfort with . Resources provided for inpatient/outpatient with business card, feeding sheet and the mom/baby guide. Parents voiced understanding of information, demonstrated learning and will call if there is a request for assistance. Reported to primary RN.
--- NOTE | 2023-05-23 14:30 | PC.NURSE ---
Patient to view the discharge video Mother & Baby Care, The First Two Weeks online. Patient was given the opportunity and encouraged to ask questions. Patient verbalized understanding of information shared and has been given the mother/baby guide for home reference.
--- NOTE | 2023-05-23 14:53 | PC.NURSE ---
[id number] Introductions were made, then consulted with patient to assess needs related to . Mother led the conversation with her?plans to feed?her infant and the?experience so far. Mother works well with her with encouragement and education. Encouraged understanding of the benefits of skin to skin (demonstrating unwrapping and placing upright on her chest), stimulating with massage touch, changing positions to encourage wakefulness, how to watch for early feeding cues, responsive feeding, feeding on demand (aiming for 8-12 times in 24 hours, about every 2-3 hours), milk production, building/maintaining a milk supply, duration of feeding, signs of adequate intake/output and how to record on the feeding sheet. Reviewed positioning and ear, shoulder, hip alignment, supporting the breast to facilitate a deep latch, asymmetrical latch (off-center), leading with the chin with a big, open, wide gape and body close to mother. Infant latched optimally to the left breast in football position. Education given to mother of how to visualize suck/swallow ratios and listen for drinking at the breast which infant is demonstrating. Infant was able to maintain latch without discomfort to mother. Nipple care reviewed with optimal latch and good positioning. Reminding mother of comfort measures of healing with a warm and wet washcloth to rinse breast, then leave open to air-dry as needed. Reviewed good handwashing when or touching the breast/nipples to prevent infection. Resources used to facilitate learning were used with the tool, mom and baby guide. Mother voiced understanding of skin to skin, stimulating with massage touch, responsive feedings, hand expressed colostrum, talking to infant to encourage if it has been 2 -2.5 hours since the start of the last , to call if infant does not latch, or if there is discomfort with . Resources provided for inpatient/outpatient with feeding sheet and the mom/baby guide. Mother voiced understanding of information, demonstrated learning and will call if there is a request for assistance. Insurance [employer] pump provided.
[2023-05-24 14:26] VITALS: BP 121/74; PULSE 84; RESP 20; TEMP 37.2; O2SAT 99
== END 2023-05-23 16:35 | disposition home or self-care (01) | DRG 787 ==
LOC: ANHLDR 05:04 → ANHOB2 23:44
PROVIDERS: Admitting Provider Obstetrics & Gynecology; PCP Internal Medicine; Visit Provider Obstetrics & Gynecology
PROC: 10D00Z1 Extraction of Products of Conception, Low, Open Approach (ICD-10-PCS; CPT 59514; principal; 2023-05-21 20:00)
DX: O62.1 Secondary uterine inertia (principal); O10.92 Unspecified pre-existing hypertension complicating childbirth; O11.4 Pre-existing hypertension with pre-eclampsia, complicating childbirth; Z3A.37 37 weeks gestation of pregnancy; Z37.0 Single live birth
CPT/HCPCS: 36415; 80053; 84550; 85025; 86592; 86850; 86900; 86901; A9270; J0456; J0690; J1885; J2274; J2371; J2405; J2590; J2795; J3010; J7120

== ENCOUNTER 2024-04-16 11:08 | Emergency (ER) | payer BC, SELFPAY ==
[2024-04-16] VITALS (12 sets, daily range): BP systolic 131–144; BP diastolic 76–95; PULSE 73–85; RESP 16–18; TEMP 36.5; O2SAT 95–100
[2024-04-16] MEDS: HYDROmorphone HCL INJ (*CRX) 1 MG/ML SYR 0.5 MG IV PUSH (11:30)
[2024-04-16] MEDS: ONDANSETRON INJ 4 MG/2 ML VIAL IV PUSH (11:30)
[2024-04-16] MEDS: SODIUM CHLORIDE 0.9% IV 1,000 ML 999 ML IV CONT ×2 (11:31→12:08)
[2024-04-16 11:42] LABS: Basophils Percent Auto 0.2 % (0.2-1.2); Eosinophils Absolute Auto 0.1 K/mm3 (0-0.3); Eosinophils Percent Auto 0.7 % (0-4.4); Hematocrit 36.4 % (37.0-47.0); Hemoglobin 12.2 g/dL (12.0-15.0); Immature Granulocyte Absolute 0.02 K/mm3 (0.00-0.031); Immature Granulocyte Percent A 0.2 % (0-0.5); Lymphocytes Absolute Auto 1.74 K/mm3 (0.9-3.2); Lymphocytes Percent Auto 21.7 % (18.3-44.2); Mean Corpuscular HGB Conc 33.5 g/dl (32-36); Mean Corpuscular Hemoglobin 28.3 pg (26-34); Mean Corpuscular Volume 84.5 fl (80-100); Mean Platelet Volume 8.9 fl (7.4-10.4); Monocytes Absolute Auto 0.5 K/mm3 (0.1-0.6); Neutrophils Absolute Auto 5.7 K/mm3 (1.3-6.7); Neutrophils Percent Auto 71.2 % (45.5-73.1); Platelet Count Result 253 k/mm3 (150-375); Red Blood Count 4.31 M/mm3 (4.2-5.4); Red Cell Distribution Width 13.2 % (11.5-14.5)
[2024-04-16 11:56] LABS: Alanine Aminotransferase 21 U/L (6-35); Albumin Level 4.2 g/dL (3.5-5.1); Alkaline Phosphatase 76 U/L (38-126); Anion Gap 10 mmol/L (4-12); Aspartate Amino Transferase 21 U/L (14-36); Bilirubin,Total 0.3 mg/dL (0.2-1.3); Blood Urea Nitrogen 8 mg/dL (7-17); Calcium 9.4 mg/dL (8.4-10.2); Carbon Dioxide 22 mmol/L (22-30); Chloride 102 mmol/L (98-107); Estimated CRCL calculation 188 ml/min; Estimated Glomerular Filt Rate > 60; Glucose 87 mg/dL (65-110); Potassium 4.1 mmol/L (3.4-5.0); Sodium 134 mmol/L (137-145)
--- NOTE | 2024-04-16 12:00 | ED.GENADULT ---
HPI - General Adult General Chief complaint: Nausea/Vomiting/Diarrhea Stated complaint: morning sickness, 14 weeks Time Seen by Provider: 04/16/24 11:13 History of Present Illness HPI narrative: 34-year-old female who is approximately 14 weeks presents to the emergency department for evaluation for abdominal pain and persistent nausea and vomiting. Patient states he does have a history of interstitial cystitis. Patient was having issues with nausea control emesis initially started on Reglan. Patient reports she had a reaction to this and patient was switched to Zofran. Patient reports that the Zofran did help to control her nausea but then she then developed subsequent diarrhea. Patient's suspects that the diarrhea has worsened her interstitial cystitis. Patient follows up with Dr. Palomo and when she called her OB Gyne today she was instructed to present to the emergency department for evaluation. Related Data Home Medications Medication Instructions Recorded Confirmed prenat.vits,chanel,wkd-evea-owboj 1 tablet PO DAILY 10/17/22 03/23/24 Allergies Allergy/AdvReac Type Severity Reaction Status Date / Time latex Allergy Severe Rash Verified 03/23/24 14:45 adhesive tape Allergy Rash Verified 03/23/24 14:45 Review of Systems Review of Systems: All systems reviewed & are unremarkable except as noted in HPI and below PMFSH Past Medical History Medical History Abnormal glucose tolerance in Asthma Hypertension Inactive tuberculosis Nexplanon insertion 03/29/11 Implanon insertion Nexplanon removal 05/14/13 Implanon removal Shoulder injury (~2006) Suppression of menses Surgical History Surgical History Delivery by section (05/21/23) primary c/s pre eclampsia H/O lumpectomy History of eye surgery (~2010) History of general surgical procedure 03/25/19 excision hidradenitis (B) 08/08/22 excision of hidradenitis suppurative (L) thigh & groin History of gynecologic surgery (05/12/20) hscope d&c/lscope--pelvic pain, irregular bleeding History of placement of ear tubes (~1992) History of right knee surgery 05/19/19 bone fragments removed 05/24/19 scraped bone out History of shoulder surgery (~2011) History of wisdom tooth extraction Family History Family History Father Diabetes mellitus Cerebrovascular accident Heart disease Coronary arteriosclerosis Hypertension Grandparent Diabetes mellitus maternal grandmother Sibling Crohn's disease sister Rheumatoid arthritis sister Mother Phyllodes neoplasm of breast, Onset Age: 67 Social History Social History Smoking status: Never smoker Second hand tobacco smoke exposure: No Alcohol intake: never Substance use: never Substance use type: does not use Do You Feel Safe in your Home?: Yes Lack of Transportation: No Lack of Food: Never True Current Housing: I Have Housing Concerned About Future Housing: No Difficulty Paying Gas/Electric Bills: No Difficulty Paying for Meds: No Currently Unemployed: No Education: Bachelor's Degree Difficulty w/ Childcare or Family Care: No Living arrangements: with family Additional living arrangements comments: Occupation/Education: occupation 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 HEAD: normocephalic, atraumatic. EYES: PERRLA/EOMI, conjunctivae clear. NOSE: Normal no drainage EARS:TMS clear with good light reflex. THROAT: P
[2024-04-16 12:15] LABS: Appearance Urine Clear (Clear); Bilirubin Urine Negative (Negative); Blood Urine Negative (Negative); Color Urine Yellow (Yellow); Glucose Urine UA Negative (Negative); Ketones Urine 2+ mg/dL (Negative); Leukocyte Esterase Ur Negative LEU/UL (Negative); Nitrate Urine Negative (Negative); Protein Urine Negative (Negative); Specific Grav Ur 1.014 (1.001-1.035); Urobilinogen Urine 0.2 mg/dL (<2.0); pH Urine 6.5 (5.0-9.0)
[2024-04-16 12:25] LABS: Add Urine Microscopic? NO
== END 2024-04-16 13:07 | disposition home or self-care (01) ==
PROVIDERS: Emergency Provider Emergency Medicine; PCP Internal Medicine
DX: O26.892 Other specified pregnancy related conditions, second trimester (principal); N30.10 Interstitial cystitis (chronic) without hematuria; O16.2 Unspecified maternal hypertension, second trimester; Z3A.14 14 weeks gestation of pregnancy
CPT/HCPCS: 36415; 80053; 81003; 85025; 96361; 96374; 96375; 99284; J1170; J2405; J7030

== ENCOUNTER 2024-05-24 09:17 | Observation (INO) | payer BC, SELFPAY ==
[2024-05-24 09:50] VITALS: BP 116/78; PULSE 92
--- NOTE | 2024-05-24 10:00 | OBADM ---
This patient, Milla Bruce, admitted to the OB room [facility] for observation. Patient/family oriented to hospital policies and general routines including ID bracelet, bed and alarms, visiting hours, pain management, procedures, bathroom and other care routines, personal items, smoking policy, room service/diet, and visiting hours. Patient/Family are encouraged to report perceived risks to care and to ask questions if they do not understand what they are told or what they should do.
[2024-05-24 10:01] VITALS: BP 128/78; PULSE 90
[2024-05-24 10:12] LABS: OBXCEM ROM Plus Negative
[2024-05-24 10:14] LABS: Add Urine Microscopic? YES; Appearance Urine Sl Cloudy (Clear); Color Urine Yellow (Yellow); Glucose Urine UA Negative (Negative); Protein Urine Negative (Negative)
[2024-05-24 10:15] LABS: Bilirubin Urine Negative (Negative); Blood Urine Negative (Negative); Ketones Urine Negative (Negative); Leukocyte Esterase Ur Negative LEU/UL (Negative); Nitrate Urine Negative (Negative); Urobilinogen Urine 0.2 mg/dL (<2.0)
[2024-05-24 10:18] LABS: Bacteria Urine 4+ /hpf; Need Manual Microscopic Reviewed; Non Pathogenic Casts 0-2; Squamous Epithelial Cell Urine Moderate /hpf (Few)
[2024-05-24 10:31] VITALS: BP 122/70; PULSE 86
--- NOTE | 2024-06-22 10:02 | P.PNOB_ITS ---
OB - Triage/Final Diagnosis Visit Information Comments/Additional reasons for admission: I have assessed the risk for this patient, Milla Bruce, and determined that she would benefit from observation care. Evaluation Laboratory results: Laboratory Tests 05/24/24 05/24/24 09:43 10:10 Urine Color Yellow Urine Appearance Sl cloudy Urine pH 6.0 Ur Specific [place] 1.020 Urine Protein Negative Urine Glucose (UA) Negative Urine Ketones Negative Ur Blood (Man) Negative Urine Nitrate Negative Urine Bilirubin Negative Urine Urobilinogen 0.2 Add Ur Microanalysis Reviewed Leukocyte Esterase Rfl Negative Urine RBC 3-5 H Urine WBC 11-20 H Ur Squamous Epith Cells Moderate Urine Bacteria 4+ H Urine Casts 0-2 Membranes Rupture Rom plus negative Final Diagnosis (1) Threatened labor, antepartum: Code(s): O47.9 - False labor, unspecified Status: Acute
== END 2024-05-24 10:45 | disposition home or self-care (01) ==
PROVIDERS: Admitting Provider Obstetrics & Gynecology; PCP Internal Medicine; Visit Provider Obstetrics & Gynecology
DX: O47.02 False labor before 37 completed weeks of gestation, second trimester (principal); Z3A.19 19 weeks gestation of pregnancy
CPT/HCPCS: 81001; 84112; 87086; G0378; G0379

== ENCOUNTER 2024-06-16 12:38 | Outpatient (CLI) | payer BC, SELFPAY ==
--- NOTE | 2024-06-16 12:51 | ECG_ITS ---
Test Date: 2024-06-16 12:59:09 Measurements Intervals [place] Rate: 95 P: 2 ME: 136 QRS: -3 QRSD: 81 T: 12 QT: 324 QTc: 408 Interpretive Statements SINUS RHYTHM DELAYED PRECORDIAL R/S TRANSITION BORDERLINE ECG No previous ECG available for comparison Electronically Signed On 06-16-2024 13:03:06 CDT by Adilson Valencia D.O.
== END 2024-06-16 12:39 | disposition home or self-care (01) ==
LOC: ANHCARD 12:40
PROVIDERS: PCP Internal Medicine; Visit Provider Obstetrics & Gynecology
DX: O99.891 Other specified diseases and conditions complicating pregnancy (principal); R07.9 Chest pain, unspecified; Z3A.00 Weeks of gestation of pregnancy not specified
CPT/HCPCS: 93005

== ENCOUNTER 2024-08-07 19:45 | Observation (INO) | payer BC, SELFPAY ==
[2024-08-07] VITALS (26 sets, daily range): BP systolic 113–130; BP diastolic 60–83; PULSE 76–96; O2SAT 96–99; BMI 40.2
[2024-08-07 20:32] LABS: Basophils Percent Auto 0.1 % (0.2-1.2); Eosinophils Absolute Auto 0.1 K/mm3 (0-0.3); Eosinophils Percent Auto 0.9 % (0-4.4); Hemoglobin 10.7 g/dL (12.0-15.0); Immature Granulocyte Absolute 0.03 K/mm3 (0.00-0.031); Immature Granulocyte Percent A 0.3 % (0-0.5); Lymphocytes Absolute Auto 2.23 K/mm3 (0.9-3.2); Lymphocytes Percent Auto 20.7 % (18.3-44.2); Mean Corpuscular HGB Conc 33.4 g/dl (32-36); Mean Corpuscular Hemoglobin 30.8 pg (26-34); Mean Corpuscular Volume 92.2 fl (80-100); Mean Platelet Volume 8.9 fl (7.4-10.4); Monocytes Absolute Auto 0.6 K/mm3 (0.1-0.6); Monocytes Percent Auto 5.8 % (2.6-8.5); Neutrophils Absolute Auto 7.8 K/mm3 (1.3-6.7); Neutrophils Percent Auto 72.2 % (45.5-73.1); Platelet Count Result 254 k/mm3 (150-375); Red Blood Count 3.47 M/mm3 (4.2-5.4); Red Cell Distribution Width 13.5 % (11.5-14.5); White Blood Count 10.8 K/mm3 (4.5-10.0)
[2024-08-07 20:35] LABS: Add Urine Microscopic? NO; Appearance Urine Clear (Clear); Bilirubin Urine Negative (Negative); Blood Urine Negative (Negative); Color Urine Yellow (Yellow); Glucose Urine UA Negative (Negative); Ketones Urine Negative (Negative); Leukocyte Esterase Ur Negative LEU/UL (Negative); Nitrate Urine Negative (Negative); Protein Urine Negative (Negative); Specific Grav Ur 1.012 (1.001-1.035); Urobilinogen Urine 0.2 mg/dL (<2.0); pH Urine 6.5 (5.0-9.0)
[2024-08-07 20:45] LABS: Alanine Aminotransferase 12 U/L (6-35); Albumin Level 3.7 g/dL (3.5-5.1); Alkaline Phosphatase 78 U/L (38-126); Anion Gap 7 mmol/L (4-12); Aspartate Amino Transferase 18 U/L (14-36); Bilirubin,Total 0.1 mg/dL (0.2-1.3); Blood Urea Nitrogen 7 mg/dL (7-17); Calcium 9.3 mg/dL (8.4-10.2); Carbon Dioxide 23 mmol/L (22-30); Chloride 104 mmol/L (98-107); Estimated Glomerular Filt Rate > 60; Glucose 93 mg/dL (65-110); Potassium 4.2 mmol/L (3.4-5.0); Sodium 134 mmol/L (137-145); Uric Acid 4.1 mg/dL (2.5-7.5)
[2024-08-07 21:06] LABS: Creatinine Urine 81.5 mg/dL; Total Protein Urine Random 7 mg/dL; Ur Ttl Prot Creatinine Ratio 0.09 mg/mg (0-0.20)
--- NOTE | 2024-08-07 21:55 | PC.NURSE ---
Call placed to Dr. Pink report c/o high bp @ home, headache, floaters, BPs @ home 146/96, 151/101, 146/96, 146/100. Reported Vitals/BP here, FHR, decels, CTX and Labs. Order to D/C pt to home undelivered and follow up with Dr. Palomo. Pt can bring BP cuff/ machine to office.
--- NOTE | 2024-08-07 22:05 | PC.NURSE ---
Pt discharged home undelivered in stable condition per Dr. Pink. Discussed discharge instructions, answered all questions and conerns, pt stated understanding. Pre-E and high blood pressure handout given. Relayed Dr. Pink to follow up with Dr. Palomo and bring BP machine if desired. Pt ambulated out of department with all belongings.
--- NOTE | 2024-08-10 07:41 | PM.OBTRLD ---
OB - Triage/Final Diagnosis Visit Information Date of evaluation: 08/07/24 Reason for evaluation: threatened labor Comments/Additional reasons for admission: I have assessed the risk for this patient, Milla Bruce, and determined that she would benefit from observation care. Evaluation Laboratory results: Laboratory Tests 08/07/24 20:14 WBC 10.8 H RBC 3.47 L Hgb 10.7 L Hct 32.0 L MCV 92.2 MCH 30.8 MCHC 33.4 RDW 13.5 Plt Count 254 MPV 8.9 Immature Gran % (Auto) 0.3 Neut % (Auto) 72.2 Lymph % (Auto) 20.7 [place] % (Auto) 5.8 Eos % (Auto) 0.9 Baso % (Auto) 0.1 L Lymph # (Auto) 2.23 [place] # (Auto) 0.6 Eos # (Auto) 0.1 Baso # (Auto) 0.0 Abs Immat Gran (auto) 0.03 Absolute Neuts (auto) 7.8 H Absolute Nucleated RBC 0.000 Nucleated RBC % 0.0 Sodium 134 L Potassium 4.2 Chloride 104 Carbon Dioxide 23 Anion Gap 7 BUN 7 Creatinine 0.60 L Estim Creat Clear Calc Not Reportable Estimated GFR > 60 Glucose 93 Uric Acid 4.1 Calcium 9.3 Total Bilirubin 0.1 L AST 18 ALT 12 Alkaline Phosphatase 78 Total Protein 7.0 Albumin 3.7 Urine Color Yellow Urine Appearance Clear Urine pH 6.5 Ur Specific [place] 1.012 Urine Protein Negative Urine Glucose (UA) Negative Urine Ketones Negative Ur Blood (Man) Negative Urine Nitrate Negative Urine Bilirubin Negative Urine Urobilinogen 0.2 Leukocyte Esterase Rfl Negative U Random Total Protein 7 Urine Creatinine 81.5 Protein/Creat Ratio 2 0.09
== END 2024-08-07 22:10 | disposition home or self-care (01) ==
PROVIDERS: Admitting Provider Student in an Organized Health Care Education/Training Program; PCP Internal Medicine; Visit Provider Student in an Organized Health Care Education/Training Program
DX: O47.03 False labor before 37 completed weeks of gestation, third trimester (principal); Z3A.29 29 weeks gestation of pregnancy
CPT/HCPCS: 36415; 59025; 80053; 81003; 82570; 84156; 84550; 85025; G0378; G0379

== ENCOUNTER 2024-09-22 11:49 | Outpatient (CLI) | payer BC, SELFPAY ==
[2024-09-22] VITALS (7 sets, daily range): BP systolic 129–140; BP diastolic 78–94; PULSE 90–102; BMI 41.0
[2024-09-22 12:40] LABS: Basophils Percent Auto 0.2 % (0.2-1.2); Eosinophils Absolute Auto 0.1 K/mm3 (0-0.3); Eosinophils Percent Auto 0.6 % (0-4.4); Hematocrit 33.9 % (37.0-47.0); Hemoglobin 11.6 g/dL (12.0-15.0); Immature Granulocyte Absolute 0.05 K/mm3 (0.00-0.031); Immature Granulocyte Percent A 0.5 % (0-0.5); Lymphocytes Absolute Auto 1.49 K/mm3 (0.9-3.2); Lymphocytes Percent Auto 15.4 % (18.3-44.2); Mean Corpuscular HGB Conc 34.2 g/dl (32-36); Mean Corpuscular Hemoglobin 30.9 pg (26-34); Mean Corpuscular Volume 90.4 fl (80-100); Mean Platelet Volume 9.2 fl (7.4-10.4); Monocytes Absolute Auto 0.5 K/mm3 (0.1-0.6); Neutrophils Absolute Auto 7.6 K/mm3 (1.3-6.7); Neutrophils Percent Auto 78.3 % (45.5-73.1); Platelet Count Result 228 k/mm3 (150-375); Red Blood Count 3.75 M/mm3 (4.2-5.4); Red Cell Distribution Width 13.2 % (11.5-14.5); White Blood Count 9.7 K/mm3 (4.5-10.0)
[2024-09-22 12:47] LABS: Add Urine Microscopic? YES; Appearance Urine Clear (Clear); Bacteria Urine Rare /hpf; Bilirubin Urine Negative (Negative); Blood Urine Negative (Negative); Color Urine Yellow (Yellow); Glucose Urine UA Negative (Negative); Ketones Urine 2+ mg/dL (Negative); Leukocyte Esterase Ur Negative LEU/UL (Negative); Nitrate Urine Negative (Negative); Non Pathogenic Casts 0-2; Protein Urine Trace mg/dL (Negative); RBC Urine 0-2 /hpf (0-2); Specific Grav Ur 1.018 (1.001-1.035); Squamous Epithelial Cell Urine Occasional /hpf (Few); Urobilinogen Urine 0.2 mg/dL (<2.0); pH Urine 7.5 (5.0-9.0)
[2024-09-22 12:50] LABS: Alanine Aminotransferase 10 U/L (6-35); Albumin Level 3.4 g/dL (3.5-5.1); Alkaline Phosphatase 114 U/L (38-126); Anion Gap 2 mmol/L (4-12); Aspartate Amino Transferase 18 U/L (14-36); Bilirubin,Total 0.4 mg/dL (0.2-1.3); Blood Urea Nitrogen 6 mg/dL (7-17); Carbon Dioxide 19 mmol/L (22-30); Chloride 110 mmol/L (98-107); Estimated Glomerular Filt Rate > 60; Glucose 87 mg/dL (65-110); Potassium 4.1 mmol/L (3.4-5.0); Sodium 131 mmol/L (137-145); Uric Acid 4.7 mg/dL (2.5-7.5)
[2024-09-22 13:05] LABS: Creatinine Urine 146.6 mg/dL; Total Protein Urine Random 9 mg/dL; Ur Ttl Prot Creatinine Ratio 0.06 mg/mg (0-0.20)
--- NOTE | 2024-09-22 13:24 | PC.NURSE ---
Dr. Mills informed of reactive NST, BP's, and lab results. Informed MD that pt is scheduled to work 18 hr shifts the next 2 days. doesn't want pt to return to work at all. She will text Dr. Palomo to see about rescheduling pt's repeat C/S.
== END 2024-09-22 13:44 | disposition home or self-care (01) ==
LOC: ANHOBOP 12:04 → ANHOBPP 12:04
PROVIDERS: PCP Internal Medicine; Visit Provider Obstetrics & Gynecology
DX: O13.9 Gestational [pregnancy-induced] hypertension without significant proteinuria, unspecified trimester (principal); Z3A.00 Weeks of gestation of pregnancy not specified
CPT/HCPCS: 36415; 59025; 80053; 81001; 82570; 84156; 84550; 85025; 87086; 99199

== ENCOUNTER 2024-09-25 14:38 | Outpatient (CLI) | payer BC, SELFPAY ==
--- NOTE | ~2024-09-25 | US_ITS ---
EXAMINATION: US OB BPP wo non-stress DATE: 09/25/2024 16:01 INDICATION: Hypertension in TECHNIQUE: Real-time pelvic ultrasound was performed. The interpreting radiologist was not present fo r the study. COMPARISON: None. FINDINGS: There is a single living fetus in vertex presentation. The placenta is anterior. heart rate is 136 beats per minute (bpm). Mildly decreased amniotic fluid index of 7.6 cm (5th%-95%: 7.7-24.9 cm a t 36 weeks estimated gestational age) Biophysical profile performed by the technologist: breathing (30 sec sustained breathing in 30 minutes): 2 out of 2 movement (3 gross body movements in 30 minutes): 2 out of 2 tone (one episode of lwsipcm-rcpvvirlx-wfakumz limb movement): 2 out of 2 Amniotic fluid pocket (2 cm): 2 out of 2 Total score: 8 out of 8 IMPRESSION: 1. Single living fetus in vertex presentation with heart rate of 136 bpm. 2. Biophysical profile 8 out of 8. 3. Oligohydramnios with mildly decreased amniotic fluid index of 7.6 cm. Reviewed, dictated and finalized at location B. 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
[2024-09-25 15:44] VITALS: BP 120/79; PULSE 105
== END 2024-09-25 14:39 | disposition home or self-care (01) ==
LOC: ANHOBOP 14:50
PROVIDERS: PCP Internal Medicine; Visit Provider Obstetrics & Gynecology
DX: O13.9 Gestational [pregnancy-induced] hypertension without significant proteinuria, unspecified trimester (principal); O41.00X0 Oligohydramnios, unspecified trimester, not applicable or unspecified; Z3A.00 Weeks of gestation of pregnancy not specified
CPT/HCPCS: 59025; 76819

== ENCOUNTER 2024-09-29 13:06 | Outpatient (CLI) | payer BC, SELFPAY ==
--- NOTE | ~2024-09-29 | US_ITS ---
EXAMINATION: US OB BPP wo non-stress DATE: 09/29/2024 14:37 INDICATION: Hypertension. Third trimester. TECHNIQUE: Real-time pelvic ultrasound was performed. COMPARISON: Ultrasound 09/25/2024 FINDINGS: There is a single living fetus in vertex presentation. The placenta is anterior. heart rate is 141 beats per minute (bpm). In a fluid index is 5.1 cm, which is low (5th percentile is 7.5 cm). Biophysical profile performed by the technologist: breathing (30 sec sustained breathing in 30 minutes): 2 out of 2 movement (3 gross body movements in 30 minutes): 2 out of 2 tone (one episode of rxaqmzk-zsgorlzza-cfapjdv limb movement): 2 out of 2 Amniotic fluid pocket (2 cm): 2 out of 2 Total score: 8 out of 8 IMPRESSION: 1. Single living fetus in vertex presentation. 2. Biophysical profile 8 out of 8. 3. Oligohydramnios. Reviewed, dictated and finalized at location A. 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
[2024-09-29 13:48] LABS: Basophils Percent Auto 0.2 % (0.2-1.2); Eosinophils Absolute Auto 0.1 K/mm3 (0-0.3); Eosinophils Percent Auto 0.5 % (0-4.4); Hematocrit 35.1 % (37.0-47.0); Hemoglobin 11.7 g/dL (12.0-15.0); Immature Granulocyte Absolute 0.05 K/mm3 (0.00-0.031); Immature Granulocyte Percent A 0.4 % (0-0.5); Lymphocytes Absolute Auto 1.87 K/mm3 (0.9-3.2); Lymphocytes Percent Auto 16.8 % (18.3-44.2); Mean Corpuscular HGB Conc 33.3 g/dl (32-36); Mean Corpuscular Hemoglobin 30.5 pg (26-34); Mean Corpuscular Volume 91.4 fl (80-100); Mean Platelet Volume 9.2 fl (7.4-10.4); Monocytes Absolute Auto 0.5 K/mm3 (0.1-0.6); Monocytes Percent Auto 4.3 % (2.6-8.5); Neutrophils Absolute Auto 8.7 K/mm3 (1.3-6.7); Neutrophils Percent Auto 77.8 % (45.5-73.1); Platelet Count Result 235 k/mm3 (150-375); Red Blood Count 3.84 M/mm3 (4.2-5.4); Red Cell Distribution Width 13.2 % (11.5-14.5); White Blood Count 11.2 K/mm3 (4.5-10.0)
[2024-09-29 13:50] LABS: Add Urine Microscopic? NO; Appearance Urine Clear (Clear); Bilirubin Urine Negative (Negative); Blood Urine Negative (Negative); Color Urine Yellow (Yellow); Glucose Urine UA Negative (Negative); Ketones Urine 1+ mg/dL (Negative); Leukocyte Esterase Ur Negative LEU/UL (Negative); Nitrate Urine Negative (Negative); Protein Urine Negative (Negative); Specific Grav Ur 1.017 (1.001-1.035); Urobilinogen Urine 0.2 mg/dL (<2.0); pH Urine 6.5 (5.0-9.0)
[2024-09-29 13:59] LABS: Alanine Aminotransferase 13 U/L (6-35); Albumin Level 3.4 g/dL (3.5-5.1); Alkaline Phosphatase 114 U/L (38-126); Anion Gap 6 mmol/L (4-12); Aspartate Amino Transferase 17 U/L (14-36); Bilirubin,Total 0.4 mg/dL (0.2-1.3); Blood Urea Nitrogen 9 mg/dL (7-17); Calcium 8.9 mg/dL (8.4-10.2); Carbon Dioxide 19 mmol/L (22-30); Chloride 107 mmol/L (98-107); Estimated Glomerular Filt Rate > 60; Glucose 113 mg/dL (65-110); Potassium 4.1 mmol/L (3.4-5.0); Sodium 132 mmol/L (137-145); Uric Acid 5.7 mg/dL (2.5-7.5)
[2024-09-29 14:01] LABS: Creatinine Urine 149.7 mg/dL
[2024-09-29 14:05] LABS: Total Protein Urine Random < 5 mg/dL; Ur Ttl Prot Creatinine Ratio < 0.03 mg/mg (0-0.20)
[2024-09-29 14:43] VITALS: BMI 40.9
[2024-09-29 14:58] VITALS: BP 116/73; PULSE 112
== END 2024-09-29 14:55 | disposition home or self-care (01) ==
LOC: ANHOBOP 13:50
PROVIDERS: PCP Internal Medicine; Visit Provider Obstetrics & Gynecology
DX: O41.03X0 Oligohydramnios, third trimester, not applicable or unspecified (principal); O13.9 Gestational [pregnancy-induced] hypertension without significant proteinuria, unspecified trimester; Z3A.00 Weeks of gestation of pregnancy not specified
CPT/HCPCS: 36415; 59025; 76819; 80053; 81003; 82570; 84156; 84550; 85025

== ENCOUNTER 2024-09-30 16:27 | Outpatient (CLI) | payer BC, SELFPAY ==
[2024-09-30 17:19] LABS: Hematocrit 39.1 % (37.0-47.0); Hemoglobin 12.8 g/dL (12.0-15.0); Mean Corpuscular HGB Conc 32.7 g/dl (32-36); Mean Corpuscular Hemoglobin 30.8 pg (26-34); Mean Platelet Volume 9.4 fl (7.4-10.4); Platelet Count Result 277 k/mm3 (150-375); Red Blood Count 4.16 M/mm3 (4.2-5.4); Red Cell Distribution Width 13.5 % (11.5-14.5); White Blood Count 12.2 K/mm3 (4.5-10.0)
[2024-10-01 15:30] LABS: Rapid Plasma Reagin Non-Reactive (NonReactive)
== END 2024-09-30 16:28 | disposition home or self-care (01) ==
PROVIDERS: PCP Internal Medicine; Visit Provider Obstetrics & Gynecology
DX: Z01.812 Encounter for preprocedural laboratory examination (principal); O47.9 False labor, unspecified; Z3A.00 Weeks of gestation of pregnancy not specified
CPT/HCPCS: 36415; 85027; 86592; 87086